=== PATIENT | male | born 1995 | race Hispanic/Latino ===

== ENCOUNTER 2019-11-15 11:18 | Emergency (ER) | payer BC, SELFPAY ==
[2019-11-15 11:21] VITALS: BP 152/89; PULSE 95; RESP 16; TEMP 36.4; O2SAT 100
[2019-11-15] MEDS: KETOROLAC (*BKC) 60 MG/2 ML VIAL IM (12:01)
--- NOTE | 2019-11-15 12:05 | ED.BACK ---
HPI - Back Pain/Injury General Chief Complaint: Back Pain/Injury Stated Complaint: back pain Time Seen by Provider: 11/15/19 11:34 Source: patient Mode of arrival: ambulatory Limitations: language barrier (Catheterization Laboratory Technician was utilized) History of Present Illness HPI Narrative: Patient is a 24-year-old male who presents to emergency department for evaluation of low back pain localized to the right lower paraspinal region that occurred after helping a friend lift an object a few days prior patient has tried [id number] medication with minimal improvement denies radicular symptoms or paresthesias recent illness or other complaints and presents in no distress and does not appear uncomfortable MD elicited complaint: back pain Pertinent past history: prior back pain Onset (ago): day(s) Timing: constant Severity: moderate Related Data Allergies Allergy/AdvReac Type Severity Reaction Status Date / Time No Known Allergies Allergy Verified 11/15/19 11:21 [facility] Social History Social History Gender identity (if verbalized by the patient): Male Course Course Emergency Course: Patient in the room in no distress will be treated given medication the emergency department prior to discharge provided with reasons to return Vital Signs Vital signs: Vital Signs Temperature 97.6 F 11/15/19 11:21 Pulse Rate 95 11/15/19 11:21 Respiratory Rate 16 11/15/19 11:21 Blood Pressure 152/89 H 11/15/19 11:21 Pulse Oximetry 100 11/15/19 11:21 Temperature 97.6 F 11/15/19 11:21 Pulse Rate 95 11/15/19 11:21 Respiratory Rate 16 11/15/19 11:21 Blood Pressure 152/89 H 11/15/19 11:21 Pulse Oximetry 100 11/15/19 11:21 MDM - Back Pain/Injury MDM Narrative Medical decision making narrative: Patients pain is positional in nature and localized to back without signs of cord compression or cauda equina based on neurological exam, skeletal exam and history. No fever or other significant factors to suggest osteomyelitis or spinal epidural abscess. No symptoms or signs to suggest pain is referred from abdominal or / cardiopulmonary sources. No pulsatile masses noted on exam. Patient ambulates with steady gait and is stable for outpatient management given case findings. Discharge Plan Discharge Clinical Impression: Strain of lumbar region Patient Disposition: Home, Self-Care Condition: Stable Instructions: Antibiotic Form, Acute Low Back Pain (ED) Additional Instructions: Medications as needed and prescribed. Limit lifting and bending. You may apply heat or cold to the area as needed. Follow up with your doctor for further care in the next 7 days. Contact your doctor or return to the emergency department if you develop problems with bladder or bowel function, weakness or loss of feeling in one or both of your legs, or any other serious concerns. Prescriptions: New cyclobenzaprine 10 mg tablet 10 mg PO TID PRN (Reason: muscle spasm) Qty: 10 RF: 0 ibuprofen [IBU] 600 mg tablet 600 mg PO QID PRN (Reason: pain) Qty: 7 RF: 0 Follow-up/Referrals: Facundo Vasquez MD [Physician] - PHYSICIAN,GROUND PRODUCTS DIRECTOR [Primary Care Provider] -
[2019-11-15 12:26] VITALS: BP 132/68; PULSE 78; RESP 18; O2SAT 99
== END 2019-11-15 12:27 | disposition home or self-care (01) ==
PROVIDERS: Emergency Provider Emergency Medicine
DX: S39.012A Strain of muscle, fascia and tendon of lower back, initial encounter (principal); X50.0XXA Overexertion from strenuous movement or load, initial encounter
CPT/HCPCS: 96372; 99283; J1885